=== PATIENT | male | born 1985 | race Two or more races ===

== ENCOUNTER 2018-07-25 13:46 | Emergency (ER) | payer SELFPAY ==
[~2018-07-25] VITALS: Ht 177.8 cm; Wt 83.9 kg
[2018-07-25 14:16] VITALS: BP 134/82
--- NOTE | 2018-07-25 14:30 | NUR ---
ED Nurse Note:pt. was BIBA from his therapist office due to suisidal ideations with plan to run in to traffic, pt. is calm and cooperative on arrival, his personal belongings placed to locker #2, VSS, blood and urine sent to labs, pt. placed on threat monitoring analyst
--- NOTE | 2018-07-25 14:38 | Emergency Room Report ---
History of Present Illness General Chief Complaint: Suicidal Source: Patient Present Illness HPI Patient is a 32-year-old male brought in by EMS after increased suicidal thoughts. Patient states that he had previously been on a mood stabilizer in the past. He states that he had told his therapist that he had been having some increased suicidality. Patient had denied prior suicide attempts. He states that he has been having these thoughts for many years. He states he would never act on them. Allergies: Coded Allergies: No Known Allergies (Unverified , 07/25/18) Patient History Past Medical History: see triage record Reviewed Nursing Documentation: PMH: Agreed; PSxH: Agreed Nursing Documentation-PMH Past Medical History: No Stated History Review of Systems All Other Systems: negative except mentioned in HPI Physical Exam Vital Signs Date Time Temp Pulse Resp B/P (MAP) Pulse Ox O2 Delivery O2 Flow Rate FiO2 07/25/18 13:38 98.6 86 16 134/82 97 Room Air Sp02 EP Interpretation: reviewed, normal General Appearance: alert/responsive, no apparent distress, GCS 15, non-toxic Head: atraumatic Eyes: PERRL, lids + conjunctiva normal ENT: hearing intact, no angioedema Neck: supple/symm/no masses, no meningismus Respiratory: effort normal, no wheezing, chest symmetrical Cardiovascular: regular rate, rhythm, no edema Cardiovascular #2: 2+ carotid (R), 2+ carotid (L), 2+ dorsalis pedis (R), 2+ dorsalis pedis (L) Gastrointestinal: non-tender, no mass, non-distended, no rebound/guarding, normal bowel sounds Musculoskeletal: gait & station normal, strength & tone normal, normal ROM, non -tender Neurologic: normal inspection, CN II-XII intact, oriented x3, sensory intact, normal speech Psychiatric: normal inspection Skin: no rash, well hydrated Lymphatic: normal inspection Medical Decision Making Diagnostic Impression: Primary Impression: Depression ER Course Patient presented for suicidal thoughts. Differential diagnosis include was not limited to attention seeking behavior, bipolar disorder, psychosis among others. Because of complexity of patient's case laboratory testing and imaging studies were ordered.Laboratory studies were unremarkable. Urine drug screen was positive for marijuana. Patient states that he would not harm himself. Patient was seen by psychiatrist who agreed the patient was low risk for self injury. Patient was discharged home. He was advised to follow-up with his outpatient mental health providers. He was given prescription for medications by the psychiatrist.Patient was advised to return if he began having increased suicidal thoughts. Labs Test 07/25/18 13:56 07/25/18 14:20 Urine Color Yellow Urine Appearance Clear Urine pH 6.5 (4.5-8.0) Urine Specific [place] 1.010 (1.005-1.035) Urine Protein 1+ (NEGATIVE) Urine Glucose (UA) Negative (NEGATIVE) Urine Ketones 1+ (NEGATIVE) Urine Blood 2+ (NEGATIVE) Urine Nitrite Negative (NEGATIVE) Urine Bilirubin Negative (NEGATIVE) Urine Urobilinogen Normal MG/DL (0.0-1.0) Urine Leukocyte Esterase 1+ (NEGATIVE) Urine RBC 2-4 /HPF (0 - 0) Urine WBC 2-4 /HPF (0 - 0) Urine Squamous Epithelial Cells Occasional /LPF Urine Bacteria Occasional /HPF (NONE) Urine Opiates Screen Negative (NEGATIVE) Urine Barbiturates Screen Negative (NEGATIVE) Phencyclidine (PCP) Screen Negative (NEGATIVE) Urine Amphetamines Screen Negative (NEGATIVE) Urine Benzodiazepines Screen Negative (NEGATIVE) Urine Cocaine Screen Negative (NEGATIVE) Urine Marijuana (THC) Screen Positive (NEGATIVE) White Blood Count 9.2 K/UL (4.8-10.8) Red Blood Count 4.88 M/UL (4.70-6.10) Hemoglobin 16.3 G/DL (14.2-18.0) Hematocrit 47.5 % (42.0-52.0) Mean Corpuscular Volume 98 FL (80-99) Mean Corpuscular Hemoglobin 33.5 PG (27.0-31.0) Mean Corpuscular Hemoglobin Concent 34.4 G/DL (32.0-36.0) Red Cell Distribution Width 10.8 % (11.6-14.8) Platelet Count 200 K/UL (150-450) Mean Platelet Volume 8.6 FL (6.5-10.1) Neutrophils (%) (Auto) 68.2 % (45.0-75.0) Lymphocytes (%) (Auto) 25.2 % (20.0-45.0) Monocytes (%) (Auto) 4.7 % (1.0-10.0) Eosinophils (%) (Auto) 0.7 % (0.0-3.0) Basophils (%) (Auto) 1.2 % (0.0-2.0) Sodium Level 140 MMOL/L (136-145) Potassium Level 3.3 MMOL/L (3.5-5.1) Chloride Level 102 MMOL/L (98-107) Carbon Dioxide Level 26 MMOL/L (21-32) Anion Gap 12 mmol/L (5-15) Blood Urea Nitrogen 14 mg/dL (7-18) Creatinine 1.1 MG/DL (0.55-1.30) Estimat Glomerular Filtration Rate > 60 mL/min (>60) Glucose Level 88 MG/DL (74-106) Calcium Level 9.5 MG/DL (8.5-10.1) Total Bilirubin 1.4 MG/DL (0.2-1.0) Direct Bilirubin 0.2 MG/DL (0.0-0.3) Aspartate Amino Transf (AST/SGOT) 30 U/L (15-37) Alanine Aminotransferase (ALT/SGPT) 37 U/L (12-78) Alkaline Phosphatase 49 U/L (46-116) Total Protein 7.7 G/DL (6.4-8.2) Albumin 4.4 G/DL (3.4-5.0) Globulin 3.3 g/dL Albumin/Globulin Ratio 1.3 (1.0-2.7) Salicylates Level 0.9 ug/mL (2.8-20) Acetaminophen Level < 2 MCG/ML (10-30) Serum Alcohol 4 mg/dL Last Vital Signs Date Time Temp Pulse Resp B/P (MAP) Pulse Ox O2 Delivery O2 Flow Rate FiO2 07/25/18 14:16 98.6 86 16 134/82 97 Room Air Status: improved Disposition: HOME, SELF-CARE Condition: Stable Blake Pearl MD Jul 25, 2018 14:38
[2018-07-25 14:39] LABS: BASOPHILS % (AUTO) 1.2 % (0.0-2.0); EOSINOPHILS % (AUTO) 0.7 % (0.0-3.0); HEMATOCRIT 47.5 % (42.0-52.0); HEMOGLOBIN 16.3 G/DL (14.2-18.0); LYMPHOCYTES % (AUTO) 25.2 % (20.0-45.0); MEAN CORPUSCULAR VOLUME 98 FL (80-99); MONOCYTES % (AUTO) 4.7 % (1.0-10.0); NEUTROPHILS % (AUTO) 68.2 % (45.0-75.0); PLATELET COUNT 200 K/UL (150-450); RED BLOOD COUNT 4.88 M/UL (4.70-6.10); RED CELL DISTRIBUTION WIDTH 10.8 % (11.6-14.8); WHITE BLOOD COUNT 9.2 K/UL (4.8-10.8)
[2018-07-25 14:40] LABS: APPEARANCE,URINE CLEAR; BILIRUBIN, URINE NEGATIVE (NEGATIVE); GLUCOSE, URINE (UA) NEGATIVE (NEGATIVE); KETONES,URINE 1+ (NEGATIVE); LEUKOCYTE ESTERASE ,URINE 1+ (NEGATIVE); NITRITE,URINE NEGATIVE (NEGATIVE); PH,URINE 6.5 (4.5-8.0); PROTEIN,URINE 1+ (NEGATIVE); UROBILINOGEN,URINE NORMAL MG/DL (0.0-1.0)
[2018-07-25 14:45] LABS: COLOR,URINE YELLOW
[2018-07-25 14:52] LABS: ANION GAP 12 mmol/L (5-15); BLOOD UREA NITROGEN 14 mg/dL (7-18); CALCIUM 9.5 MG/DL (8.5-10.1); CARBON DIOXIDE 26 MMOL/L (21-32); CHLORIDE 102 MMOL/L (98-107); CREATININE 1.1 MG/DL (0.55-1.30); POTASSIUM 3.3 MMOL/L (3.5-5.1); SODIUM 140 MMOL/L (136-145)
[2018-07-25 15:02] LABS: ALANINE AMINOTRANSFERASE 37 U/L (12-78); ALBUMIN 4.4 G/DL (3.4-5.0); ALBUMIN/GLOBULIN RATIO 1.3 (1.0-2.7); ALKALINE PHOSPHATASE 49 U/L (46-116); ASPARTATE AMINO TRANSFERASE 30 U/L (15-37); BILIRUBIN,TOTAL 1.4 MG/DL (0.2-1.0)
[2018-07-25 15:03] LABS: BILIRUBIN,DIRECT 0.2 MG/DL (0.0-0.3)
[2018-07-25 16:25] VITALS: BP 144/80
--- NOTE | 2018-07-25 16:26 | NUR ---
ED Nurse Note:pt. in the room ,sitter at bed side , ate his dinner, condition stable
--- NOTE | 2018-07-25 19:45 | NUR ---
ED Nurse Note: Pt cleared by MD. Discharge instructions and paperwork provided. Prescriptions provided. Pt verbalized understanding of all instructions. All belonings taken with patient. VSS. Ambulated out of hospital with steady gait. ID band removed.
[2018-07-25 20:24] VITALS: BP 133/67
--- NOTE | 2018-07-26 03:31 | Consultation ---
DATE OF CONSULTATION: 07/25/2018 HISTORY OF PRESENT ILLNESS: This is a 32-year-old -[place] male with a history of depression, who was brought into the hospital by paramedics. The patient apparently today was taking his ex-boyfriend to the therapy session. During the therapy session, he expressed worthlessness and severe depression to his boyfriend. The boyfriend relayed that message to the therapist. Then, the therapist talked to the patient and convinced him to come to the ER. They called 911. The patient was brought in. During the evaluation, the patient was tearful and stated that they are going through a breakup. His boyfriend has chose him over other man. The patient's boyfriend has been using meth and having sexual encounter with other men. The patient stated that he is not suicidal nor homicidal. He is just feeling worthless and going through a breakup. [facility] He is not currently on any medication, however, stated that Inderal has helped his anxiety. He stated that he has no difficulty with sleeping and his anxiety is around 3/10 to 4/10. The patient wants to be discharged and will follow up with a psychiatrist. PAST PSYCHIATRIC HISTORY: He has no history of psychiatric hospitalization. No suicide attempts. PAST MEDICAL HISTORY: None. ALLERGIES: No known drug allergies. SUBSTANCE ABUSE HISTORY: He smokes marijuana and drinks socially. Two days ago, he has tried meth for the first time. However, he has no addiction to meth. SOCIAL HISTORY: He is recently going through a breakup and his parents are going through a divorce. family who live in [place] and he has this relationship. MENTAL STATUS EXAMINATION: The patient is alert and oriented x4 to place, self, day, and situation. His mood is anxious. Affect is fluent and congruent with mood. Thought process is linear. Thought content, no suicidal or homicidal ideation. No psychotic symptoms. Insight and judgment is fair. ASSESSMENT: Erhard I Anxiety disorder, no cannabis dependence. Erhard II Deferred. Erhard III None. Erhard IV [id number]. Erhard V 55. PLAN: 1. The patient will be given a prescription for Inderal as it has worked for his anxiety in the past, Lexapro 10 mg in the morning. 2. He was referred back to his [facility]. The patient is not an imminent danger to self or others. He will be discharged with a followup plan. Amber Angeles M.D. DR: JUANCRALOS JOB#: [id number] CC:
== END 2018-07-25 19:45 | disposition home or self-care (01) ==
LOC: EDBD 13:46 → EMR 14:27
DX: R45.851 Suicidal ideations (principal)
CPT/HCPCS: 36415; 80053; 80307; 81003; 82248; 85025; 99283; G0480; 80329